=== PATIENT | female | born 1985 | race Two or more races ===

== ENCOUNTER 2021-12-31 17:36 | Emergency (ER) | payer MEDICAID, OTHER ==
[~2021-12-31] VITALS: Ht 165.1 cm; Wt 72.7 kg
[2021-12-31 18:49] VITALS: BP 125/86
[2021-12-31] MEDS ORDERED: MUPI2OIN2 EX (21:08)
== END 2021-12-31 21:49 | disposition home or self-care (01) ==
LOC: ER 17:36
DX: S69.91XA Unspecified injury of right wrist, hand and finger(s), initial encounter (principal); Z88.0 Allergy status to penicillin; V49.69XA Unspecified car occupant injured in collision with other motor vehicles in traffic accident, initial encounter; Y93.89 Activity, other specified; Y92.89 Other specified places as the place of occurrence of the external cause; Y99.8 Other external cause status
CPT/HCPCS: 73130